=== PATIENT | female | born 1940 | race Caucasian/White ===

== ENCOUNTER 2017-06-13 05:22 | Inpatient (IN) | payer MEDICARE, BC ==
[~2017-06-13] VITALS: Ht 162.6 cm; Wt 79.8 kg
[2017-06-13] MEDS ORDERED: SODIUM CHLORIDE 0.9% 1,000 ML IV ONE (06:05)
[2017-06-13] MEDS ORDERED: ASPIRIN 81MG TABLET PO ONE (06:15)
[2017-06-13 06:20] LABS: EOSINOPHILS % 2.3 % (0.0-5.0); HEMATOCRIT. 40.6 % (36.0-48.0); HEMOGLOBIN. 13.8 g/dL (12.0-16.0); LYMPHOCYTES % 17.8 % (20.0-50.0); MEAN CORPUSCULAR HEMOGLOBIN 27.3 pg (28.0-32.0); MEAN CORPUSCULAR VOLUME 80.4 fL (81.0-99.0); MEAN PLATELET VOLUME 7.7 fl (7.4-10.4); MONOCYTES % 9.5 % (2.0-8.0); NEUTROPHILS % 69.4 % (40.0-76.0); PLATELET 241 x1000/uL (130-400); RED BLOOD CELL COUNT 5.05 mill/uL (4.2-5.4); RED CELL DISTRIBUTION WIDTH 13.8 % (11.6-14.6)
[2017-06-13 06:32] LABS: PARTIAL THROMBOPLASTIN TIME 26.9 sec (23.4-31.0); PROTHROMBIN TIME 10.3 sec (9.4-11.6)
[2017-06-13 06:38] LABS: CARBON DIOXIDE 27 mEq/L (21-32); CHLORIDE 106 mEq/L (98-107); TROPONIN I < 0.02 ng/mL (0.00-0.04)
[2017-06-13 06:43] LABS: CLARITY URINE CLEAR (CLEAR); COLOR URINE YELLOW (YELLOW); GLUCOSE URINE NEGATIVE (NEGATIVE); KETONES URINE NEGATIVE (NEGATIVE); LEUKOCYTE ESTERASE URINE NEGATIVE (NEGATIVE); NITRITE URINE NEGATIVE (NEGATIVE); OCCULT BLOOD URINE NEGATIVE (NEGATIVE); PROTEIN URINE NEGATIVE (NEGATIVE); SPECIFIC GRAVITY URINE 1.006 (1.005-1.030); UROBILINOGEN URINE 0.2 E.U./dL (0.2-1.0)
[2017-06-13 08:30] VITALS: BP 134/62
[2017-06-13 09:30] VITALS: BP 134/62
[2017-06-13] MEDS ORDERED: AMLO10TA80 PO (10:27)
[2017-06-13] MEDS ORDERED: ROSU40TA PO (10:27)
[2017-06-13] MEDS ORDERED: METO50TA5 PO (10:28)
[2017-06-13] MEDS ORDERED: OLME40TA12 PO (10:28)
[2017-06-13] MEDS ORDERED: IPRATROPIUM/ALBUTEROL 0.5-3(2.5)MG/3ML NEB INH PRN (12:15)
[2017-06-13] MEDS ORDERED: DIPHENHYDRAMINE 50MG/ML VIAL IV PRN (12:15)
[2017-06-13] MEDS ORDERED: LORAZEPAM 0.5MG TABLET PO PRN (12:15)
[2017-06-13] MEDS ORDERED: ACETAMINOPHEN 650MG/20.3ML UDC GT PRN (12:15)
[2017-06-13] MEDS ORDERED: DOCUSATE SODIUM 100MG CAPSULE PO PRN (12:15)
[2017-06-13] MEDS ORDERED: CLONIDINE 0.1MG TABLET PO PRN (12:15)
[2017-06-13] MEDS ORDERED: MAGNESIUM/ALUMINUM HYDROXIDE/SIMETHICONE 30ML UDC PO PRN (12:15)
[2017-06-13] MEDS ORDERED: GUAIFENESIN 200MG/10ML SUGAR FREE UDC PO PRN (12:15)
[2017-06-13] MEDS ORDERED: ACETAMINOPHEN 650MG SUPP PR PRN (12:15)
[2017-06-13] MEDS ORDERED: NA PHOS,M-B/NA PHOS,DI-BA ENEMA 118ML PR PRN (12:15)
[2017-06-13] MEDS ORDERED: HYDROCODONE/ACETAMINOPHEN 5/325MG TABLET PO PRN (12:15)
[2017-06-13] MEDS ORDERED: ACETAMINOPHEN 325MG TABLET PO PRN (12:15)
[2017-06-13 13:00] VITALS: BP 123/61
[2017-06-13 15:58] VITALS: BP 138/59
[2017-06-13 16:00] VITALS: BP 138/59
[2017-06-13 16:12] LABS: CREATINE KINASE 83 IU/L (26-192); CREATINE KINASE MB FRACTION 1.1 ng/mL (0.5-3.6); TROPONIN I < 0.02 ng/mL (0.00-0.04)
[2017-06-13] MEDS ORDERED: AMLODIPINE 10MG TABLET PO SCH (17:15)
[2017-06-13 17:53] LABS: CLARITY URINE CLOUDY (CLEAR); COLOR URINE YELLOW (YELLOW); GLUCOSE URINE NEGATIVE (NEGATIVE); KETONES URINE NEGATIVE (NEGATIVE); LEUKOCYTE ESTERASE URINE NEGATIVE (NEGATIVE); NITRITE URINE NEGATIVE (NEGATIVE); OCCULT BLOOD URINE NEGATIVE (NEGATIVE); PH URINE 8.5 (4.5-8.0); PROTEIN URINE NEGATIVE (NEGATIVE); SPECIFIC GRAVITY URINE 1.011 (1.005-1.030); UROBILINOGEN URINE 0.2 E.U./dL (0.2-1.0)
[2017-06-13 18:08] LABS: *AMPHETAMINES SCREEN URINE NEGATIVE (NEGATIVE); *BARBITURATES SCREEN URINE NEGATIVE (NEGATIVE); *BENZODIAZEPINES SCREEN URINE NEGATIVE (NEGATIVE); *COCAINE SCREEN URINE NEGATIVE (NEGATIVE); CANNABINOID URINE SCREEN NEGATIVE (NEGATIVE); METHADONE URINE SCREEN NEGATIVE (NEGATIVE); OPIATES URINE SCREEN NEGATIVE (NEGATIVE); PHENCYCLIDINE URINE SCREEN NEGATIVE (NEGATIVE)
[2017-06-13] MEDS ORDERED: ATORVASTATIN CALCIUM 40MG TABLET PO SCH (21:00)
[2017-06-13] MEDS ORDERED: METOPROLOL TARTRATE 50MG TABLET PO SCH (21:00)
[2017-06-14] MEDS ORDERED: LOSARTAN POTASSIUM 100 MG TABLET PO SCH (09:00)
== END 2017-06-13 18:45 | disposition left against medical advice (07) | DRG 149 ==
LOC: ER 05:37 → 5WST 07:24 → EDBEDREQ 07:46 → ENRESERV 07:54
PROVIDERS: ADMIT Family Medicine; ATTEND Family Medicine
DX: R42 Dizziness and giddiness (principal); I10 Essential (primary) hypertension; R00.2 Palpitations; I25.10 Atherosclerotic heart disease of native coronary artery without angina pectoris; R73.9 Hyperglycemia, unspecified; Z95.1 Presence of aortocoronary bypass graft
CPT/HCPCS: 36415; 71010; 80053; 80305; 81001; 81003; 82550; 82553; 82962; 83880; 84484; 85025; 85610; 85730; 93005; 96360; 96361; 99285; J7030